=== PATIENT | female | born 1965 | race Caucasian/White ===

== ENCOUNTER 2020-10-31 12:42 | Outpatient (CLI) | payer OTHER ==
[2020-10-31 20:56] LABS: SARS-CoV-2 PCR by NAA Not Detected (NotDetected)
== END 2020-10-31 12:43 | disposition home or self-care (01) ==
LOC: CSHLAB 12:42
PROVIDERS: ATTEND Internal Medicine Gastroenterology
DX: Z01.812 Encounter for preprocedural laboratory examination (principal); Z20.822 Contact with and (suspected) exposure to COVID-19
CPT/HCPCS: 87635; U0003; U0005

== ENCOUNTER 2020-11-05 06:02 | Day surgery (SDC) | payer OTHER ==
[2020-11-04 11:34] VITALS: BMI 26.9
[2020-11-05] MEDS ORDERED: Lidocaine 1% MPF 2 ML VIAL ONE (06:58)
[2020-11-05] MEDS ORDERED: PROPOFOL 40 ML ONE ×2 (07:26→08:01)
[2020-11-05] MEDS ORDERED: Lidocaine 1% PF 5 ML VIAL ONE (07:26)
== END 2020-11-05 09:00 | disposition home or self-care (01) ==
LOC: CSHSDC 06:02
PROVIDERS: ATTEND Internal Medicine Gastroenterology
PROC: 0D758ZZ Dilation of Esophagus, Via Natural or Artificial Opening Endoscopic (ICD-10-PCS; principal; 2020-11-05)
DX: R13.10 Dysphagia, unspecified (principal); K22.2 Esophageal obstruction; K31.9 Disease of stomach and duodenum, unspecified; K29.70 Gastritis, unspecified, without bleeding
CPT/HCPCS: 88305; J2704